=== PATIENT | male | born 1970 | race Caucasian/White ===

== ENCOUNTER 2021-01-02 10:50 | Emergency (ER) | payer OTHER, SELFPAY ==
[2021-01-02 11:20] VITALS: BP 133/84; PULSE 85; RESP 16; TEMP 36.9; O2SAT 98
[2021-01-02] MEDS: TETANUS,DIPHTHERIA,AC PERTUSSIS ADULT (0.5 ML) BOOSTRIX IM (11:46)
--- NOTE | 2021-01-02 12:55 | PC.NURSE ---
moved to 1 for further tx by scientific process operator.
--- NOTE | 2021-01-02 13:09 | ED.WOUNDLAC ---
HPI - Wound/Laceration General Chief Complaint: Wound/Laceration Stated Complaint: cut 3rd finger left hand Time Seen by Provider: 01/02/21 12:37 Source: patient and RN notes reviewed Mode of arrival: ambulatory Limitations: no limitations History of Present Illness HPI narrative: Patient presents today complaint of a laceration to his left third finger. He was cleaning his turtle aquarium at home when the glass broke and cut his finger just prior to arrival. Denies numbness or tingling. He is not up-to-date on his tetanus vaccine. Denies any interventions at home prior to arrival. Related Data Home Medications Medication Instructions Recorded Confirmed No Home Medications 01/02/21 01/02/21 Allergies Allergy/AdvReac Type Severity Reaction Status Date / Time No Known Drug Allergies Allergy Unknown Verified 09/18/18 19:09 Review of Systems Review of Systems: CONSTITUTIONAL: Denies body aches, fever, chills, or sweats. EYES: Denies visual changes, redness, or discharge. ENT: Denies rhinorrhea, congestion, sore throat, or otalgia. CARDIOVASCULAR: Denies chest pain, palpitations, or edema. RESPIRATORY: Denies cough or dyspnea. GASTROINTESTINAL: Denies abdominal pain, nausea, vomiting, or diarrhea. GENITOURINARY: Denies dysuria or hematuria. SKIN: Denies rash, itching. + Finger laceration MUSCULOSKELETAL: Denies back pain, joint pain, or myalgia. NEUROLOGIC: Denies headache, numbness, tingling, or weakness. PSYCH: Denies depression or anxiety. PMFSH Comments At time of signature, I have reviewed and agree with nursing past medical, surgical, social and family history unless otherwise noted. Please see nursing chart for further information. There is no relevant family history pertinent to the presenting complaint Exam Narrative: GENERAL: Well-appearing, well-nourished, and in no acute distress. HEAD: Normocephalic, atraumatic. EYES: EOMI. No redness or drainage. Conjunctivae normal. ENT: Mucous membranes pink and moist. NECK: Normal AROM. CHEST: No respiratory distress. EXTREMITIES: Left third finger: 1 x 1 cm superficial partial-thickness flap laceration to the palmar aspect of the PIP. Distal sensation intact. Capillary refill normal. Full range of motion of the finger against resistance. SKIN: Warm, dry, no rash. Capillary refill normal. Normal skin turgor. NEURO: No focal deficits. Alert and oriented x3. Gait steady. PSYCH: Normal affect. No signs of depression or anxiety. Course Vital Signs Vital signs: Vital Signs Temperature 98.5 F 01/02/21 11:20 Pulse Rate 85 01/02/21 11:20 Respiratory Rate 16 01/02/21 11:20 Blood Pressure 133/84 01/02/21 11:20 Pulse Oximetry 98 01/02/21 11:20 Temperature 98.5 F 01/02/21 11:20 Pulse Rate 85 01/02/21 11:20 Respiratory Rate 16 01/02/21 11:20 Blood Pressure 133/84 01/02/21 11:20 Pulse Oximetry 98 01/02/21 11:20 Reviewed. Pt has been instructed to follow up with his PCP regarding his elevated blood pressure today. Procedures Laceration Laceration 1: Date: 01/02/21 Time: 13:10 Site: hand (Left third finger) Side (If applicable): left Size (cm): 1 Description: flap Depth: simple, single layer Local Anesthetic: none Pre-repair: wound explored and irrigated extensively (250ml sterile water) ====== Skin Level ====== Skin layer closed with: dermabond ====== Subcutaneous Layer ====== ====== Muscle Layer ====== ====== Tendon Layer ====== Dressing: splint MDM - Wound/Laceration Differential Diagnosis Differential diagnosis: Likely laceration and avulsion of skin Critical Care Time Critical Care Time Critical Care Time: No Discharge Plan Discharge Clinical Impression: Flap laceration of skin Patient Disposition: Home, Self-Care Condition: Stable Instructions: Skin Adhesive Care (ED), Laceration (DC) Addit
== END 2021-01-02 13:30 | disposition home or self-care (01) ==
PROVIDERS: Emergency Provider Nurse Practitioner
DX: S61.213A Laceration without foreign body of left middle finger without damage to nail, initial encounter (principal); W25.XXXA Contact with sharp glass, initial encounter; Z23 Encounter for immunization
CPT/HCPCS: 12001; 90471; 90715; 99212; G0463

== ENCOUNTER 2023-02-02 13:09 | Emergency (ER) | payer OTHER, SELFPAY ==
[2023-02-02 13:19] VITALS: BP 159/94; PULSE 72; RESP 16; TEMP 36.7; O2SAT 99
--- NOTE | 2023-02-02 13:41 | ED.DENTAL ---
HPI - Dental/Oral General Chief complaint: Dental/Oral Stated complaint: tooth pain right side Time Seen by Provider: 02/02/23 13:55 Source: patient Mode of arrival: ambulatory Limitations: no limitations History of Present Illness HPI Narrative: 52-year-old male presents with concern for right upper dental pain for 1 week. Reports history of breaking a tooth in that area. Reports he has had some cheek pain. He denies difficulty swallowing, fever. MD Complaint: tooth pain Related Data Home Medications Medication Instructions Recorded Confirmed atorvastatin 10 mg tablet 10 mg PO DAILY 02/02/23 02/02/23 lisinopril 2.5 mg tablet 2.5 mg PO DAILY 02/02/23 02/02/23 sertraline 25 mg tablet 25 mg PO DAILY 02/02/23 02/02/23 Allergies Allergy/AdvReac Type Severity Reaction Status Date / Time No Known Drug Allergies Allergy Unknown Other Verified 02/02/23 13:17 Review of Systems Review of Systems: CONSTITUTIONAL: Denies malaise, chills, sweats, or fever. EYES: Denies visual changes ENT: Denies rhinorrhea, congestion, sinus pain, otalgia or sore throat. Reports right upper dental pain CARDIOVASCULAR: Denies chest pain, palpitations RESPIRATORY: Denies cough or dyspnea. SKIN: Denies rash or itching. MUSCULOSKELETAL: Denies myalgia. NEUROLOGIC: Denies numbness, weakness, or headache. All systems reviewed & are unremarkable except as noted in HPI and below PMFSH Comments At time of signature, agree with nursing past medical, surgical, social and family history. There is no relevant family history pertinent to the presenting complaint Exam Narrative: GENERAL: Well-appearing, well-nourished, and in no acute distress. HEAD: Normocephalic, atraumatic. EYES: PERRLA, sclera clear ENT: Nares clear, turbinates pink, no rhinorrhea or epistaxis. Mucous membranes moist. TM pearly manning with sharp light reflex bilaterally; no tragal tenderness. Oropharynx without erythema or lesions. Tonsils not enlarged and without exudate. Missing teeth, broken teeth, caries noted, no cheek swelling or redness NECK: Supple. No lymphadenopathy. CHEST: No respiratory distress. Speaks in full sentences. HEART: Regular rate and rhythm. SKIN: Warm, dry, no visible rash. NEURO: Alert and oriented x3. PSYCH: Normal mood and affect Course Course Emergency Course: Patient is aware of diagnosis, understands and agrees to treatment plan. Anticipatory guidance given. Patient agrees to follow-up as directed and is aware of reasons to seek care at the emergency department. Portions of this record may have been created with voice recognition software Level of Care: Express Care Visit Vital Signs Vital signs: Vital Signs Temperature 98.1 F 02/02/23 13:19 Pulse Rate 72 02/02/23 13:19 Respiratory Rate 16 02/02/23 13:19 Blood Pressure 159/94 H 02/02/23 13:19 Pulse Oximetry 99 02/02/23 13:19 Oxygen Delivery Room Air 02/02/23 13:19 Temperature 98.1 F 02/02/23 13:19 Pulse Rate 72 02/02/23 13:19 Respiratory Rate 16 02/02/23 13:19 Blood Pressure 159/94 H 02/02/23 13:19 Pulse Oximetry 99 02/02/23 13:19 Oxygen Delivery Room Air 02/02/23 13:19 Reviewed. MDM - Dental/Oral MDM Narrative Medical decision making narrative: Patients pain and complaint coupled with physical findings are consistant with dentalgia. There are no focal signs of space occupying lesions that are compromising to the airway; no dysphagia, odynophagia, dysphonia, or dyspnea. No uvular deviation or soft palate edema. Patient is non-toxic appearing. The floor of the mouth is soft with no signs of Kelechi's Angina; no induration below mandible, no neck pain. Patient is without trismus or drooling and able to swallow secretions. Patient is felt appropriate for discharge home with dental follow up. Differential Diagnosis Differential diagnosis: Likely gingival abscess, dental caries, toothache, dental abscess, fracture of tooth and aphthou
== END 2023-02-02 14:06 | disposition home or self-care (01) ==
PROVIDERS: Emergency Provider Nurse Practitioner; PCP Family Medicine
DX: K08.89 Other specified disorders of teeth and supporting structures (principal); E78.00 Pure hypercholesterolemia, unspecified; I10 Essential (primary) hypertension; E11.9 Type 2 diabetes mellitus without complications; F41.9 Anxiety disorder, unspecified; F32.A Depression, unspecified
CPT/HCPCS: 99213; G0463